=== PATIENT | female | born 1950 | race Caucasian/White ===

== ENCOUNTER 2016-12-25 04:23 | Observation (INO) | payer MEDICARE, BC ==
[2016-12-21 09:42] LABS: HEMOGLOBIN 14.4 g/dL (12.0-16.0)
--- NOTE | ~2016-12-25 | OP ---
Record Of Operation [facility] [address] [place]. [address] NAME: RODOLFO PIERCE : 46 STATUS : ADM IN PAT#: [id number] AGE: 66 ADM/REG DATE : 12/25/16 MR#: [id number] REPORT SERV DATE: 12/26/16 DICTATED BY: SWETA DE II DATE: 12/26/16 REPORT STATUS : Draft TRANSCRIBED BY: MODIlana DATE: 12/26/16 DATE OF PROCEDURE: 12/25/2016 PREOPERATIVE DIAGNOSIS: Cervical spondylosis with C5-6 stenosis and right upper extremity radiculopathy. POSTOPERATIVE DIAGNOSIS: Cervical spondylosis with C5-6 stenosis and right upper extremity radiculopathy. PROCEDURE: 1. C5-6 anterior interbody arthrodesis. 2. Application of prosthetic device, C5-6. 3. Anterior instrumentation, C5-6. 4. Use of the microscope. 5. Use of allograft substitute and bone marrow aspirate. SURGEON: Sweta De M.D. FLUIDS: 1400 mL LR. ESTIMATED BLOOD LOSS: 15 mL. DRAINS: No drains. COMPLICATIONS: No complications. ANTIBIOTIC: Preoperatively. PREOPERATIVE HISTORY: This is a very friendly 66-year-old female, who reports neck pain with significant radiation into the right arm with associated numbness and tingling. We discussed the pros and cons of continuing nonoperative care versus surgery. DESCRIPTION OF PROCEDURE: After informed consent was obtained, the patient was brought to the operating room at her request, and general anesthesia achieved. She was placed in the supine position and the neck and iliac crest prepped and draped in a sterile fashion. A 5 mL of bone marrow were aspirated from the iliac crest followed by a right-sided longitudinal incision. The interval was explored. The deep cervical fascia incised. The subperiosteal exposure was completed at C5-6. The curing supervisor retractors were placed underneath the longus colli muscles. The ET tube cuff was deflated and reinflated. The microscope was now brought into place and under microscopic visualization, the [place] pins were placed. The gentle distraction was performed followed by the diskectomy at C5-6. The endplates were now prepared with the curettes and the high-speed bur. Parallel endplates were created with the high-speed bur. The posterior vertebral body osteophytes were now removed with the pituitary rongeurs, [place] rongeurs. The significant foraminal osteophytes were now removed. Record Of Operation [facility] [place] [place]. [address] NAME: RODOLFO PIERCE : 46 STATUS : ADM IN PAT#: [id number] AGE: 66 ADM/REG DATE : 12/25/16 MR#: [id number] REPORT SERV DATE: 12/26/16 DICTATED BY: SWETA DE II DATE: 12/26/16 REPORT STATUS : Draft TRANSCRIBED BY: MODL DATE: 12/26/16 Next, the prosthetic device was placed at C5-6. This contained allograft substitute and bone marrow aspirate. The device was acceptably placed. The [place] pins were now removed. The anterior fixation device was now placed. Please note, this was a separate plate and screw construct. The multiplanar imaging confirmed acceptable placement of the implants. Standard closure was performed following confirmation of hemostasis. At this point, the patient was now extubated and transferred to PACU in stable condition. The plan will be for overnight stay. We will allow her to return to activities as tolerated. I had a nice long conversation with her postoperatively and answered all of his questions appropriately. EDVIN/CULLEN Sweta De II, M.D. / [id number] CC: Sharon Montgomery II, M.D.
[~2016-12-25 04:23] MED LIST: *UNABLE2; ALEVE220 MG PO; AMBIEN CR12.5 MG PO; ATV.5 PO; ATV1 PO; DEPAKOT500 PO; DSS PO; ENDOCET1 TA3 PO; FLONASE NAS; FLORASTOR250 MG PO; LEVAQUIN5T PO; LEVAQUIN750 MG PO; LIDO5OINT TOP; MAXIMUM D3 PO; MEGACEUDL PO; MELATONIN5 M1 PO; MOMUD PO; MULTIVIT/MIN PO; NEUR300 PO; NEUR600 PO; NEUR800 PO; OXYCON20 PO; PCET PO; PEPCID40 MG PO; PHENADOZ25 MG RE; PRILO PO; PROBIOTIC PO; PROTONIX PO; PROZAC40 MG PO; SEROQUEL1C PO; SINGULAIR1 PO; SUCR PO; THERAPEUTIC M PO; VALTREX5 PO; VITA10 PO; ZOVI200CAP PO; ZYP2 PO; ZYP5 PO
[2016-12-26] MEDS ORDERED: PERCOCET 10/3251 TAB PO (12:05)
[2016-12-26] MEDS ORDERED: V5 PO (12:05)
== END 2016-12-26 12:44 | disposition home or self-care (01) ==
LOC: SDC/OF 04:23 → PACU 08:03 → 3SO 10:28
PROVIDERS: Orthopaedic Surgery
PROC: 079T3ZX Drainage of Bone Marrow, Percutaneous Approach, Diagnostic (ICD-10-PCS; principal; 2016-12-25 05:45)
PROC: 0RG10A0 Fusion of Cervical Vertebral Joint with Interbody Fusion Device, Anterior Approach, Anterior Column, Open Approach (ICD-10-PCS; 2016-12-25 05:45)
DX: M48.02 Spinal stenosis, cervical region (principal); M43.02 Spondylolysis, cervical region; M47.22 Other spondylosis with radiculopathy, cervical region; K58.9 Irritable bowel syndrome, unspecified; Z86.19 Personal history of other infectious and parasitic diseases; Z88.1 Allergy status to other antibiotic agents; I34.1 Nonrheumatic mitral (valve) prolapse; M79.7 Fibromyalgia; Z87.01 Personal history of pneumonia (recurrent); F43.10 Post-traumatic stress disorder, unspecified; Z98.890 Other specified postprocedural states; Z79.899 Other long term (current) drug therapy
CPT/HCPCS: 82962; 85014; 85018; 87641; 88304; 88311; 93005; 96374; 96375; 96376; A9270-GY; C1713; G0378; J0690; J2250; J2270; J2405; J2710; J3010

== ENCOUNTER 2016-12-30 09:32 | Inpatient (IN) | payer MEDICARE, BC ==
[~2016-12-30 09:32] MED LIST changes: +PERCOCET 10/3251 TAB PO; +V5 PO
[2016-12-30 10:20] LABS: BASOPHILS 0.1 %; BASOPHILS ABSOLUTE 0.01 10/3/uL (0.0-0.16); EOSINOPHILS 0.2 %; EOSINOPHILS ABSOLUTE 0.03 10/3/uL (0.0-0.53); HEMATOCRIT 43.3 % (36.0-48.0); HEMOGLOBIN 14.3 g/dL (12.0-16.0); IMMATURE GRANULOCYTES 0.2 %; IMMATURE GRANULOCYTES ABSOLUTE 0.03 10/3/uL (0.0-0.11); LYMPHOCYTES 7.5 %; LYMPHOCYTES ABSOLUTE 1.03 10/3/uL (0.67-4.30); MEAN CORPUSCULAR HEMOGLOB 29.1 pg (26.0-34.0); MEAN CORPUSCULAR VOLUME 88.2 fL (80-100); MEAN PLATELET VOLUME 10.5 fL (9.2-13.0); MONOCYTES 6.1 %; MONOCYTES ABSOLUTE 0.84 10/3/uL (0.21-1.20); NEUTROPHILS 85.9 %; NEUTROPHILS ABSOLUTE 11.77 10/3/uL (2.02-8.40); RBC DISTRIBUTION WIDTH 14.9 % (12.0-16.0); RED CELL COUNT 4.91 10/6/uL (4.0-5.6)
[2016-12-30 10:21] LABS: ER CBC TAT 0 Hrs 21 Mins; PLATELET COUNT 296 10/3/uL (150-400); WHITE BLOOD CELLS 13.7 10/3/uL (4.5-10.5)
[2016-12-30 10:22] LABS: MANUAL DIFF NO %
[2016-12-30 10:28] LABS: INFLUENZA A SCREEN NEGATIVE (NEGATIVE); INFLUENZA B SCREEN NEGATIVE (NEGATIVE)
[2016-12-30 10:34] LABS: BUN (BLOOD UREA NITROGEN) 13 MG/DL (6-23); CALCIUM, SERUM 10.3 MG/DL (8.5-10.4); CHLORIDE, SERUM 100 MMOL/L (96-112); CO2 (CARBON DIOXIDE) 30 MMOL/L (24-34); GFR AFRICAN AMERICAN 103 ML/MIN (>=60); GFR NON AFRICAN AMERICAN 89 ML/MIN (>=60); GLUCOSE, SERUM 115 MG/DL (60-99); SODIUM, SERUM 139 MMOL/L (135-148)
[2016-12-30 10:56] LABS: PROCALCITONIN <0.05 ng/mL (<0.5)
[2016-12-30 11:59] LABS: ASCORBIC ACID (UR NOT ORDER) NEG (NEG); BILIRUBIN, URINE NEGATIVE (NEG); ER URINALYSIS TAT 0 Hrs 13 Mins; KETONE, URINE TRACE MG/DL (NEG); LEUKOCYTE ESTERASE(NOT OR NEG (NEG); NITRITE (URINE) NEG (NEG); WBC (NOT ORDERED) (RFLEX) 3 (0-5)
== END 2017-01-01 13:43 | disposition home or self-care (01) | DRG 863 ==
LOC: ER 09:32 → CDU1 13:02 → CDU2 14:15 → 3SO 12-31 11:10
PROVIDERS: Emergency Medicine
DX: T81.4XXA Infection following a procedure, initial encounter (principal); Z98.890 Other specified postprocedural states
CPT/HCPCS: 70491; 71010; 80048; 81001; 83690; 84145; 85025; 87804; 93005; 96374; 99285; A9270-GY; J2405; Q9967